=== PATIENT | female | born 1980 | race Caucasian/White ===

== ENCOUNTER 2017-03-12 17:25 | Emergency (ER) | payer OTHER ==
[2017-03-12 17:14] LABS: BASOPHIL# 0.1 X10e3 (0-0.3); BASOPHIL% 0.9 % (0-2.5); EOSINOPHIL# 0.2 X10e3 (0-0.7); EOSINOPHIL% 1.5 % (0.0-7.0); HEMATOCRIT 43.6 % (35.0-45.0); HEMOGLOBIN 14.6 gm/dL (12.0-16.0); LYMPHOCYTE# 1.5 X10e3 (1.0-3.5); LYMPHOCYTE% 15.1 % (17.0-45.0); MEAN CELL VOLUME 91.7 FL (83-96); MEAN CORPUSCULAR HEMOGLOBIN 30.8 PG (28-34); MEAN CORPUSCULAR HGB CONC 33.5 g/dL (30-36); MEAN PLATELET VOLUME 8.2 FL (6.5-11.5); MONOCYTE# 0.4 X10e3 (0-1.0); MONOCYTE% 3.9 % (3.0-12.0); NEUTROPHIL% 78.6 % (40-75); PLATELET COUNT 351 X10e3 (140-420); RED BLOOD COUNT 4.76 X10e (3.90-5.30); RED CELL DISTRIBUTION WIDTH 13.1 % (11.0-15.5); WHITE BLOOD COUNT 10.1 X10e3 (4.0-10.5)
[2017-03-12 17:15] LABS: DIFF IND NO
[~2017-03-12 17:25] MED LIST: ALBUTEROL17 G1 IH; ALBUTEROL17 GM; ALBUTEROL17 GM INH; AMITRYPTYLINE PO; AMOXICILLIN PO; AMOXICILLIN500 M1 PO; AMOXICILLIN875 MG PO; AMOXIL500 M1 PO; ANTIVERT PO; ATENOLOL PO; AUGMENTIN PO; BACTRIM DS TABL1 TA1 PO; BCP; BIRTH CONTROL PILL PO; CALCIUM + D 6001 TA1 PO; CELEXA PO; CIPRO PO; CLARITIN10 M3 PO; CYMBALTA30 MG PO; DICLOFENAC PO; DOXYCYCLINE PO; EC-NAPROSYN500 MG PO; EPIPEN0.3 MG/0.1 IM; ERYTHROMYC3.5 GM OPT OD; FAMOTIDINE PO; FLEXERIL PO; FLEXERIL10 MG; FLEXERIL10 MG PO; HCTZ PO; HYDROCODON-ACE1 EACH PO; IBUPROFEN PO; IBUPROFEN800 MG PO; IMITREX; IMITREX PO; KETOPROFEN PO; KLONOPIN0.5 M2; LORTAB 5/500 TA1 TA1 PO; MEDROL4 MG/DOSE- PO; MOTRIN; NAPROSYN500 MG PO; NEURONTIN300 MG; NEURONTIN600 MG PO; PAXIL PO; PERCOCET; PERCOCET 10/31 UDTA1 PO; PHENERGAN; PHENERGAN PO; PHENERGAN25 MG PO; PREDNISONE PO; PRENATAL1 TA1 PO; PROVENTIL; SUDAFED30 M1 PO; TRAMADOL HCL50 M1 PO; TRAZODONE HCL100 MG PO; TYLENOL SINUS1 EACH PO; ULTRAM PO; VENTAVIS IH; VICODIN 5/500 T1 TAB PO; VOLTAREN75 MG PO; ZOFRAN PO; ZOLOFT PO; ZYRTEC PO
[2017-03-12 17:30] LABS: BUN/CREATININE RATIO 16.66; CALCIUM SERUM 8.9 mg/dL (8.4-10.2); CREATININE SERUM 0.6 mg/dL (0.6-1.4); GLOM FILT RATE Estimated 118.9 mL/min (>60)
[2017-03-12 17:52] LABS: URINE SOURCE CLEAN CATCH
[2017-03-12 17:56] LABS: POTASSIUM 3.3 mmol/L (3.5-5.1)
[2017-03-12 17:57] LABS: URINE BILIRUBIN NEG (NEG); URINE BLOOD 3+ (NEG); URINE COLOR YELLOW; URINE GLUCOSE NEG (NORM); URINE LEUKOCYTE ESTERASE 2+ (NEG); URINE NITRATE POS (NEG); URINE PH 5.5 (5-8); URINE PROTEIN TRACE (NEG); URINE UROBILINOGEN 0.2 MG/DL (NORM)
[2017-03-12 17:58] LABS: MICRO INDICATED? YES; URINE APPEARANCE HAZY
[2017-03-12 17:59] LABS: URINE KETONE 2+ (NEG)
[2017-03-12 18:06] LABS: CULTURE INDICATED? YES; URINE BACTERIA 2+ (NEG); URINE GRANULAR CAST 0-2 /[HPF]; URINE HYALINE CAST 0-2 /[HPF]; URINE SQUAMOUS EPITHELIAL CELL OCCAS /[HPF]; URINE WBC 25-50 /[HPF] (0-5)
== END 2017-03-12 18:37 | disposition home or self-care (01) ==
LOC: SED 17:25
PROVIDERS: Physician Assistant
DX: G43.909 Migraine, unspecified, not intractable, without status migrainosus (principal); N39.0 Urinary tract infection, site not specified; R12 Heartburn; F32.9 Major depressive disorder, single episode, unspecified; F41.9 Anxiety disorder, unspecified; Z98.890 Other specified postprocedural states; Z88.5 Allergy status to narcotic agent; Z88.8 Allergy status to other drugs, medicaments and biological substances; Z91.012 Allergy to eggs
CPT/HCPCS: 36415; 80048; 81003; 84703; 85025; 87086; 87088; 87186; 96374; 96375; 99284; J0696; J1885; J2360; J2405

== ENCOUNTER 2017-03-26 06:56 | Emergency (ER) | payer OTHER ==
[2017-03-26] MEDS ORDERED: ESCITALOPRAM OX20 MG PO (07:12)
[2017-03-26] MEDS ORDERED: BUSPIRONE HCL7.5 MG PO (07:12)
[2017-03-26] MEDS ORDERED: ONDANSETRON HCL4 M1 PO (07:13)
[2017-03-26] MEDS ORDERED: MEDROL4 M1 (07:14)
[2017-03-26] MEDS ORDERED: PERCOCET 7.5-31 EACH PO (07:14)
== END 2017-03-26 08:50 | disposition home or self-care (01) ==
LOC: SED 06:56
DX: L50.0 Allergic urticaria (principal); I10 Essential (primary) hypertension; F17.200 Nicotine dependence, unspecified, uncomplicated; Z79.899 Other long term (current) drug therapy; Z88.8 Allergy status to other drugs, medicaments and biological substances
CPT/HCPCS: 99282